=== PATIENT | female | born 1990 | race Two or more races ===

== ENCOUNTER 2025-05-09 10:41 | Emergency (ER) | payer OTHER ==
[~2025-05-09] VITALS: Ht 167.6 cm; Wt 59.0 kg
[2025-05-09] MEDS ORDERED: RINGERS SOLUTION,LACTATED 1,000 ML IV STA (13:27)
[2025-05-09 14:06] LABS: BASO % 0.5 % (0.1-1.2); EOS # 0.18 (0.04-0.54); EOS % 2.8 % (0.7-7.0); LYMPH # 1.63 (1.18-3.74); LYMPH % 25.1 % (19.3-53.1); MEAN PLATELET VOLUME 10.90 fl (9.4-12.4); MONO # 0.33 (0.24-0.82); MONO % 5.1 % (4.7-12.5); NEUT # 4.32 (1.56-6.13); NEUT % 66.3 % (34.0-71.1); RED CELL DISTRIBUTION WIDTH 12.4 % (11.6-14.4)
[2025-05-09 15:10] LABS: BUN CREA RATIO 20.0 (7.0-25.0); CREATININE SERUM 0.45 mg/dL (0.55-1.02); GFR 157.65; GLUCOSE FASTING 84.0 mg/dL (65-100); OSMOLALITY SERUM 279.0 MOSM/KG (275-295)
[2025-05-09 15:11] LABS: HCG QUANTITATIVE 1423.0 mUI/mL (1-3)
[2025-05-09 15:27] LABS: URINE APPEARANCE Clear; URINE BILIRRUBIN Negative (NEGATIVE); URINE BLOOD Moderate; URINE COLOR Yellow; URINE GLUCOSE Negative (NEGATIVE); URINE LEUKOCYTE Small; URINE NITRATE Negative; URINE PROTEIN Negative (NEGATIVE); URINE UROBILINOGEN 0.2 E.U./dl
[2025-05-09 16:02] LABS: URINE KETONE 40 (NEGATIVE)
[2025-05-09 16:04] LABS: URINE RBC 0-3 /HPF
[2025-05-09 16:07] LABS: URINE BACTERIA FEW
== END 2025-05-09 17:33 | disposition home or self-care (01) ==
LOC: ER 10:41
PROVIDERS: General Practice
DX: O20.8 Other hemorrhage in early pregnancy (principal); Z3A.01 Less than 8 weeks gestation of pregnancy; N93.9 Abnormal uterine and vaginal bleeding, unspecified